=== PATIENT | female | born 2000 | race African-American/Black ===

== ENCOUNTER 2019-01-27 22:19 | Emergency (ER) | payer MEDICAID ==
[2019-01-28 02:28] LABS: ADD UMIC YES; UR ASCORBIC ACID NEGATIVE (NEGATIVE); UR BACTERIA FEW /HPF (NONE SEEN); UR BILIRUBIN (Dip) NEGATIVE (NEGATIVE); UR BLOOD (Dip) 1+ mg/dL (NEGATIVE); UR CLARITY CLOUDY (CLEAR); UR COLOR YELLOW (YELLOW); UR GLUCOSE (Dip) NEGATIVE (NEGATIVE); UR KETONES (Dip) NEGATIVE (NEGATIVE); UR LEUKOCYTE ESTERASE (Dip) 3+ Leu/ul (NEGATIVE); UR MUCUS FEW /HPF (NONE SEEN); UR NITRITE (Dip) NEGATIVE (NEGATIVE); UR RBC 54 /HPF (0-5); UR SPECIFIC GRAVITY (Dip) 1.026 (1.003-1.030); UR SQUAMOUS EPITHELIAL CELL FEW /HPF (FEW); UR TOTAL PROTEIN (Dip) NEGATIVE (NEGATIVE); UR UROBILINOGEN (Dip) NEGATIVE (NEGATIVE); UR WBC 105 /HPF (0-5)
[2019-01-28] MEDS: KETOROLAC 60 MG INJ IM (02:29)
[2019-01-28] MEDS: FLUCONAZOLE 150 MG TAB PO (02:35)
== END 2019-01-28 03:23 | disposition home or self-care (01) ==
LOC: FTE 22:19
DX: N60.19 Diffuse cystic mastopathy of unspecified breast (principal); N89.8 Other specified noninflammatory disorders of vagina; N39.0 Urinary tract infection, site not specified
CPT/HCPCS: 81001; 81025; 87210; 96372; 99284-25

== ENCOUNTER 2019-02-14 00:21 | Emergency (ER) | payer MEDICAID ==
[2019-02-14 01:58] LABS: ADD UMIC NO; UR ASCORBIC ACID NEGATIVE (NEGATIVE); UR BILIRUBIN (Dip) NEGATIVE (NEGATIVE); UR BLOOD (Dip) NEGATIVE (NEGATIVE); UR CLARITY CLEAR (CLEAR); UR COLOR YELLOW (YELLOW); UR GLUCOSE (Dip) NEGATIVE (NEGATIVE); UR KETONES (Dip) 1+ mg/dL (NEGATIVE); UR LEUKOCYTE ESTERASE (Dip) NEGATIVE Leu/ul (NEGATIVE); UR NITRITE (Dip) NEGATIVE (NEGATIVE); UR SPECIFIC GRAVITY (Dip) 1.024 (1.003-1.030); UR TOTAL PROTEIN (Dip) NEGATIVE (NEGATIVE); UR UROBILINOGEN (Dip) NEGATIVE (NEGATIVE)
[2019-02-14] MEDS: KETOROLAC 30 MG INJ IM (02:32)
[2019-02-14] MEDS: CYCLOBENZAPRINE 10 MG TAB PO (02:39)
== END 2019-02-14 03:11 | disposition home or self-care (01) ==
LOC: FTE 00:21
DX: M54.9 Dorsalgia, unspecified (principal); M62.838 Other muscle spasm
CPT/HCPCS: 81003; 84703; 87086; 96372; 99284-25

== ENCOUNTER 2019-02-24 01:53 | Emergency (ER) | payer MEDICAID | END 2019-02-24 02:28 | disposition home or self-care (01) | LOC: FTE 01:53 | DX: J02.9 Acute pharyngitis, unspecified (principal); H66.003 Acute suppurative otitis media without spontaneous rupture of ear drum, bilateral | CPT/HCPCS: 99283; Z7502 ==

== ENCOUNTER 2019-05-03 02:19 | Emergency (ER) | payer OTHER ==
[2019-05-03 04:09] LABS: URINE BLOOD (Dip) POC Negative (NEGATIVE); URINE GLUCOSE (Dip) POC Negative (NEGATIVE); URINE KETONES (Dip) POC Negative (NEGATIVE); URINE LEUKOCYTE EST (Dip) POC Negative (NEGATIVE); URINE NITRITE (Dip) POC Negative (NEGATIVE); URINE TOTAL PROTEIN POC 2+ (NEGATIVE)
[2019-05-03] MEDS: LIDOCAINE/MYLANTA 40 ML BTL PO (04:14)
[2019-05-03 04:18] LABS: URINE BLOOD (Dip) POC Negative (NEGATIVE); URINE GLUCOSE (Dip) POC Negative (NEGATIVE); URINE KETONES (Dip) POC Negative (NEGATIVE); URINE LEUKOCYTE EST (Dip) POC Negative (NEGATIVE); URINE NITRITE (Dip) POC Negative (NEGATIVE); URINE TOTAL PROTEIN POC 2+ (NEGATIVE)
== END 2019-05-03 04:28 | disposition home or self-care (01) ==
LOC: FTE 04:28
DX: R10.10 Upper abdominal pain, unspecified (principal); M54.5 Low back pain; R19.7 Diarrhea, unspecified
CPT/HCPCS: 81003; 81025; 99282